=== PATIENT | male | born 1980 | race Caucasian/White ===

== ENCOUNTER → 2018-06-21 | Outpatient (CLI) | payer BC, OTHER ==
[~2018-06-21] VITALS: Ht 188 cm; Wt 190.5 kg
[~2018-06-21] MED LIST: BACTRIM 400-801 EACH PO; LISINOPRIL20 MG PO; SERTRALINE HCL100 MG PO
--- NOTE | ~2018-06-21 | P ---
[facility] [place] [address] PROCEDURE REPORT Name: GLADYS CHAPARRO Room #: REG [facility]ITAL[facility] [id number] Admission: 06/21/18 ������������������ Attend Phys: Sánchez Bolivar MD Discharge: ������������������ Date of : 80 Report #: [id number] THIS REPORT FOR: //name// CC: Sánchez Bates DO DATE OF SERVICE: 06/21/2018 BRIEF HISTORY: The patient is a 38-year-old male with family history of colon cancer, father aged 53, and also he had a colonoscopy 3 years ago and was found to have a greater than 1 cm hyperplastic polyp proximal to the sigmoid colon. PREOPERATIVE DIAGNOSIS: Family history of colon cancer versus colon polyps. POSTOPERATIVE DIAGNOSES: 1. Diminutive polyp at the mid ascending colon. 2. Small internal hemorrhoids. MEDICATIONS: Deep sedation with propofol per anesthesia. SPECIMEN: Polyp, mid ascending colon. ESTIMATED BLOOD LOSS: 3 mL. PROCEDURE: Colonoscopy to cecum and terminal ileum with biopsy. FINDINGS: Prior to propofol sedation, procedure of colonoscopy discussed with the patient as well as potential risks and its complications. He indicates he understands and desires to proceed. DESCRIPTION OF PROCEDURE: With the patient in left lateral decubitus position, digital examination was completed, which revealed no abnormalities. Subsequently, the Olympus video colonoscope was introduced in the rectum, advanced under direct vision to the cecum. Done with minimal difficulty. The cecum was identified by the ileocecal valve and the appendiceal orifice. I was able to visualize the distal segment of the terminal ileum, which was inspected and noted to be unremarkable. At that point, scope was slowly withdrawn and careful circumferential views obtained. Upon slow withdrawal of the scope, the prep was excellent. Mucosa was within normal limits, normal vascular pattern, normal light reflex. As we withdrew the scope, he was noted to have a diminutive polyp in the mid ascending colon that was removed by biopsy. Upon further withdrawal of the scope, no additional polypoid lesions were seen. The mucosa throughout the remainder of the colon was normal. The scope was withdrawn in the rectum and no abnormalities were seen. However, upon retroflexion, small hemorrhoids were seen. The scope was withdrawn. [facility] [address] [place] [address] PROCEDURE REPORT Name: GLADYS CHAPARRO Room #: REG [facility].Dana.#: [id number] Admission: 06/21/18 ������������������ Attend Phys: Sánchez Bolivar MD Discharge: ������������������ Date of : 80 Report #: [id number] patient tolerated the procedure well. CONDITION OF THE PATIENT UPON DISCHARGE: Following procedure, the patient was drowsy and arousable. He will be discharged home when fully ambulatory. INSTRUCTIONS TO THE PATIENT AND FAMILY AT THE TIME OF DISCHARGE: One diminutive polyp identified and removed as described above. We will follow up on pathology. However, in view of his personal history and family history, suggest to return in 5 years for colonoscopy. Last colonoscopy was 3 years ago. Withdrawal time from the cecum was 9 minutes 52 seconds. ��������������������������������������������� ���������������������������������������� By: ��������������������������������������������� [id number] Sánchez Bolivar MD /nt
--- NOTE | 2018-06-24 16:07 | PATH ---
[facility] [address] [place] [address] PATHOLOGY RPT PROCEDURE Name: MARCELINO CHAPARRO Room #: REG Andrew Madden.#: [id number] ������������������ Admission: 06/21/18 ������������������ Date of : 80 Discharge: Report #: [id number] Path Case #: [id number] [facility] Accession Number: [id number] . 01 Material submitted: . MID ASCENDING COLON POLYP . 01 Clinical history: . Pre-OP DX: Family HX colon cancer, Hx colon polyps Post-OP DX: Colon polyp . 02 Diagnosis: Polyp, mid ascending colon polyp, endoscopic biopsy: - Tubular adenoma. - Negative for high-grade dysplasia. (IUV:jarek; 06/24/2018) QMS/06/24/2018 . 02 Electronically signed: . Tesha Alfred MD, Pathologist NPI- [id number] . 01 Gross description: . Received in formalin labeled "Marcelino Chaparro, mid ascending colon polyp," is a single segment of guerrero soft tissue measuring 0.5 cm in maximum dimension. The specimen is entirely submitted in cassette A1. (TSD; 06/21/2018) TOB/TOB . 02 Pathologist provided ICD-10: D12.2 . 02 CPT . 700013 Specimen Comment: A courtesy copy of this report has been sent to Specimen Comment: [phone], . Specimen Comment: Report sent to / DR SIDHU Performed at: [address], [place] [id number] MD Myke Gomez MD Phone: [phone] Performed at: [address] [id number] MD Tesha Alfred MD Phone: [phone]
== END | disposition home or self-care (01) ==
LOC: GI 07:42
DX: Z12.11 Encounter for screening for malignant neoplasm of colon (principal); Z86.010 Personal history of colon polyps; Z80.0 Family history of malignant neoplasm of digestive organs; D12.2 Benign neoplasm of ascending colon; K64.8 Other hemorrhoids; I10 Essential (primary) hypertension; F41.9 Anxiety disorder, unspecified; Z98.890 Other specified postprocedural states; Z87.891 Personal history of nicotine dependence; Z79.899 Other long term (current) drug therapy
CPT/HCPCS: 62110; 62900